=== PATIENT | female | born 1980 | race Hispanic/Latino ===

== ENCOUNTER 2018-02-05 20:06 | Emergency (ER) | payer OTHER ==
[~2018-02-05] VITALS: Ht 157.5 cm; Wt 90.7 kg
[2018-02-05 20:46] LABS: BILIRUBIN,URINE NEGATIVE (NEGATIVE); CLARITY,URINE SL CLOUDY (CLEAR); COLOR,URINE YELLOW (YELLOW); KETONES,URINE NEGATIVE (NEGATIVE); LEUKOCYTE ESTERASE ,URINE 2+ (NEGATIVE); NITRITE,URINE NEGATIVE (NEGATIVE); PREGNANCY TEST, URINE NEGATIVE (NEGATIVE); PROTEIN,URINE DIPSTICK NEGATIVE (NEGATIVE); URINE UROBILINOGEN 0.2 mg/dL (0.2 - 1)
[2018-02-05 21:02] LABS: BACTERIA,URINE FEW /HPF; EPITHELIAL CELLS,URINE FEW /LPF; RBC,URINE 0-5 /HPF (0-5); WBC,URINE (MAN) 21-50 /HPF (0-5)
[2018-02-05 21:10] VITALS: BP 132/86
== END 2018-02-05 21:15 | disposition home or self-care (01) ==
LOC: ER 20:06
DX: R30.0 Dysuria (principal); R10.2 Pelvic and perineal pain; N30.90 Cystitis, unspecified without hematuria
CPT/HCPCS: 81001; 81025; 99283

== ENCOUNTER 2018-04-26 16:17 | Observation (INO) | payer OTHER ==
[~2018-04-26] VITALS: Ht 157.5 cm; Wt 90.7 kg
[2018-04-26 17:43] LABS: CLARITY,URINE CLEAR (CLEAR); COLOR,URINE YELLOW (YELLOW); KETONES,URINE NEGATIVE (NEGATIVE); LEUKOCYTE ESTERASE ,URINE NEGATIVE (NEGATIVE); NITRITE,URINE NEGATIVE (NEGATIVE); PROTEIN,URINE DIPSTICK NEGATIVE (NEGATIVE); URINE UROBILINOGEN 0.2 mg/dL (0.2 - 1)
[2018-04-26 17:44] LABS: BILIRUBIN,URINE NEGATIVE (NEGATIVE)
[2018-04-26 17:48] LABS: EPITHELIAL CELLS,URINE FEW /LPF; WBC,URINE (MAN) 0-5 /HPF (0-5)
[2018-04-26 17:49] LABS: MUCUS,URINE RARE (RARE)
--- NOTE | 2018-04-26 18:17 | Diagnostic Imaging Report ---
PROCEDURE: A single AP view of the chest. COMPARISON: None. INDICATIONS: LEFT SIDED CHEST PAIN FINDINGS: Lines/tubes: None. Lungs: The lungs are well inflated and clear. There is no evidence of pneumonia or pulmonary edema. Pleura: There is no pleural effusion or pneumothorax. Heart and mediastinum: The heart and the mediastinum are unremarkable. Bones: No acute bony abnormality. IMPRESSION: 1. No acute cardiopulmonary disease. Dictated by: Hema Thomas M.D. on 04/26/2018 at 18:22 Electronically approved by: Hema Thomas M.D. on 04/26/2018 at 18:22
[2018-04-26 18:52] LABS: BASOPHILS # (AUTO) 0.1 (0.0-0.1); BASOPHILS % 0.8 % (0.0-1.0); EOSINOPHILS # (AUTO) 0.3 (0.0-0.4); EOSINOPHILS % 3.4 % (0.0-6.0); HEMATOCRIT 33.9 % (34.2-44.1); HEMOGLOBIN 11.6 g/dL (12.0-16.0); LYMPHOCYTES % 34.3 % (18.0-39.1); MEAN CORPUSCULAR HEMOGLOBIN 30.2 pg (28-32); MEAN CORPUSCULAR HGB CONC 34.2 g/dL (31-35); MEAN CORPUSCULAR VOLUME 88.3 fL (81-99); MONOCYTES # (AUTO) 0.7 (0.2-0.8); MONOCYTES % 7.9 % (4.4-11.3); NEUTROPHILS # (AUTO) 4.6 (2.1-6.9); NEUTROPHILS % 53.1 % (38.7-80.0); PLATELET COUNT 322 x10e3/uL (140-360); RED BLOOD COUNT 3.84 x10e6/uL (3.6-5.1); RED CELL DISTRIBUTION WIDTH 12.5 % (11.7-14.4)
[2018-04-26 19:09] LABS: ALANINE AMINOTRANSFERASE 72 IU/L (0-55); ALBUMIN 3.7 g/dL (3.5-5.0); ALKALINE PHOSPHATASE 128 IU/L (40-150); ANION GAP 12.8 mmol/L (8-16); BLOOD UREA NITROGEN 16 mg/dL (7-26); BUN/CREATININE RATIO 23 (6-25); CALCIUM 9.4 mg/dL (8.4-10.2); CARBON DIOXIDE 23 mmol/L (22-29); CHLORIDE 106 mmol/L (98-107); CREATINE KINASE 61 IU/L (29-168); EST GLOMERULAR FILTRATION RATE > 60 ML/MIN (60-); GLUCOSE 94 mg/dL (74-118); POTASSIUM 3.8 mmol/L (3.5-5.1); SODIUM 138 mmol/L (136-145)
[2018-04-26] MEDS ORDERED: LEVONOR/ETHI PO (21:20)
[2018-04-26] MEDS: FAMOTIDINE 20 MG/2 ML VIAL IV SCH (21:42)
[2018-04-26] MEDS ORDERED: ONDANSETRON HCL INJ 2 MG/ML VIAL IV PRN (21:45)
[2018-04-26] MEDS ORDERED: SODIUM CHLORIDE FLUSH 10 ML SYR INJ PRN (21:45)
[2018-04-27 02:51] LABS: CREATINE KINASE 51 IU/L (29-168)
[2018-04-27 06:18] LABS: CREATINE KINASE 51 IU/L (29-168)
[2018-04-27 07:13] LABS: CHOL/HDL RATIO 3.5 (3.0-3.6)
[2018-04-27] MEDS ORDERED: ASPIRIN 81 MG ENTERIC COATED PO SCH (09:00)
[2018-04-27] MEDS ORDERED: [UNRECOGNIZED DRUG - OTHER] PO SCH (09:00)
[2018-04-27] MEDS ORDERED: ETHI PO SCH (09:00)
[2018-04-27] MEDS: FAMOTIDINE 20 MG/2 ML VIAL IV SCH (09:18)
--- NOTE | 2018-04-27 10:03 | History and Physical ---
Ms. Kearney is a 37-year-old female who denies any prior medical history came to the emergency room complaining of a 2-day history of left-sided chest pain on and off, and lasting several hours. She states it feels like a sharp pain. She denies any nausea, vomiting, any shortness of breath. PAST MEDICAL HISTORY: She denies any prior medical history. SURGICAL HISTORY: Cholecystectomy. ALLERGIES: NO KNOWN DRUG ALLERGIES. SOCIAL HISTORY: She does not smoke. She drinks occasionally. She lives at home with her family. PHYSICAL EXAMINATION GENERAL: Today, she is awake and alert. VITALS: Temperature is 98.3, blood pressure 95/66. HEART: Regular rate. LUNGS: Clear to auscultation. ABDOMEN: Distended and soft. EXTREMITIES: Lower extremities with no edema. No erythema. BLOOD WORK: White count 8.74, hemoglobin 11.6, hematocrit 33.9. Potassium 3.8, creatinine 0.7, glucose 94. Liver enzymes are a little elevated. Three sets of cardiac enzymes negative. Cholesterol is negative. Chest x-ray shows no acute findings. ADMITTING DIAGNOSIS: Chest pain in a patient with no prior medical history or any risk factors. PLAN: EKG, cardiac enzymes times 3 are negative. We are going to wait for the project production engineer to see the patient. Once she is cleared, she is going to be discharged home and have her follow up as an outpatient. Please see home medication reconciliation list. All of this was discussed with the patient. All questions were answered to satisfaction. Job#: [id number] ELVI
[2018-04-27] MEDS ORDERED: ACETAMINOPHEN 325 MG TAB PO PRN (12:15)
[2018-04-27 16:35] VITALS: BP 112/71
[2018-04-27 20:09] VITALS: BP 143/82
--- NOTE | 2018-04-27 20:11 | Consultation ---
DATE OF CONSULTATION: April 27, 2018 CARDIOLOGY CONSULTATION REASON FOR CONSULTATION: Chest pain. CHIEF COMPLAINT: "I felt 2 shocks in my chest." HISTORY OF PRESENT ILLNESS: The patient is a 37-year-old female with no prior medical history presented with very atypical chest pain. She had an episode on Thursday which she describes as a sharp pain in the left side of her chest. She did not think much of it and it went away on its on; however, it recurred yesterday and this time it was accompanied by sensation of 2 sharp shocks in the upper left thorax. She was very concerned and presented to the ER for further evaluation. She has no previous cardiac history. Denies any shortness of breath, diaphoresis, syncope, presyncope, palpitations. She has no medical issues. No hypertension, diabetes, smoking or family history of coronary artery disease. REVIEW OF SYSTEMS: Ten-point review of systems was performed and was negative otherwise mentioned in history of present illness. PAST MEDICAL HISTORY: None. FAMILY HISTORY: No family history of early CAD. SOCIAL HISTORY: Patient does not smoke, drink or use illicit drugs. PHYSICAL EXAMINATION: VITAL SIGNS: Temperature 97.8, pulse 58, respiratory rate 18, blood pressure 112/71, satting 96% on room air. EYES: Conjunctivae clear. EARS, NOSE, MOUTH AND THROAT: Normal mucosa. No pallor or bleeding. NECK: No jugular venous distension. MUSCULOSKELETAL: Normal muscle tone and strength. No atrophy or abnormal movements. EXTREMITIES: No clubbing or cyanosis. SKIN: No venostasis changes or ulcers. GENERAL: Well-developed, well-nourished, obese female. CARDIOVASCULAR: PMI nondisplaced. Regular. S1 and S2. No murmurs, rubs or gallops. Normal carotid pulses. Palpable femoral pulses. Palpable pedal pulses. No peripheral edema or varicosities. RESPIRATORY: No respiratory distress. Lungs are clear to auscultation bilaterally. ABDOMEN: Soft, nontender. No masses. NEURO AND PSYCH: Alert and oriented to person, place and time. Normal affect. MEDICATIONS: Patient does not take any outpatient medications. LABORATORY DATA: Reviewed, significant for negative cardiac enzymes times 3 sets. IMAGING DATA: Reviewed. Normal chest x-ray. EKG reviewed, normal sinus rhythm, normal EKG. ASSESSMENT: Noncardiac chest pain. PLAN: Chest pain is very unlikely to be cardiac as patient has no risk factors. No further cardiac workup recommended at this time. Patient can follow up with her primary care doctor as an outpatient. Okay to be discharged from cardiology point of view. Thank you for this consult. Will continue to follow. Job#: [id number] JESS
== END 2018-04-27 20:04 | disposition home or self-care (01) ==
LOC: ER 16:17 → ERHOLD 21:38 → IMCU 04-27 14:04
PROVIDERS: ADMIT Internal Medicine; ATTEND Internal Medicine
DX: R07.89 Other chest pain (principal); K76.0 Fatty (change of) liver, not elsewhere classified
CPT/HCPCS: 36415; 71045; 80053; 80061; 81001; 82550; 82553; 84484; 85025; 93005; 99284; G0378